=== PATIENT | male | born 1970 | race Native Hawaiian/Other Pacific Islander ===

== ENCOUNTER 2018-12-26 12:49 | Day surgery (SDC) | payer OTHER ==
[2018-12-26] MEDS ORDERED: MARCAINE 0.25% INFILTRATI ONE ×2 (14:22→16:34)
[2018-12-26] MEDS ORDERED: TRIPLE ANTIBIOTIC TP ONE (14:22)
[2018-12-26] MEDS ORDERED: ANTIBIOTIC OINT TP ONE (14:22)
[2018-12-26] MEDS ORDERED: SUBLIMAZE ONE (14:26)
[2018-12-26] MEDS ORDERED: DIPRIVAN 10 MG/ML IV ONE ×2 (14:26→15:42)
--- NOTE | 2018-12-26 15:10 | Short Stay Summary ---
Short Stay Documentation Date of service: 12/26/18 - History H&P: obtained from office - Allergies and Medications Current Medications: Allergies No Known Allergies Allergy (Verified 12/26/18 14:24) Home Medications Medication Instructions Recorded Confirmed Last Taken Type Acyclovir [Zovirax Tab] 800 mg PO PRN PRN 12/19/18 12/19/18 Unknown History Emtricitabine/Tenofovir (Tdf) 1 each PO DAILY 12/19/18 12/19/18 Unknown History [Truvada 100 mg-150 mg Tablet] Multivit-Min/FA/Lycopen/Lutein 1 each PO DAILY 12/19/18 12/19/18 Unknown History [Centrum Silver Tablet] Zolpidem 5 mg PO PRN PRN 12/19/18 12/19/18 Unknown History - Brief post op/procedure progress note Date of procedure: 12/26/18 Pre-op diagnosis: Phimosis / balanitis Post-op diagnosis: same Procedure: circumcision Anesthesia: GETA Findings: mild inflammations Surgeon: JACOBO PINEDA Estimated blood loss: none Pathology: list (foreskin) Specimen disposition: to lab Condition: stable - Hospital course Hospital course: orpacuhome - Disposition Condition at discharge: Good Disposition: DC-01 TO HOME OR SELFCARE Short Stay Discharge Plan Activity: advance as tolerated Diet: advance as tolerated Follow up with: JACOBO PINEDA MD [Staff Physician] - 7 Days Prescriptions: cephALEXin [Keflex] 500 mg PO Q6HR #20 capsule HYDROcodone/APAP 5-325 [[place] 5-325 mg TAB] 1 each PO Q4HR PRN #25 tablet PRN Reason: Pain
[2018-12-26] MEDS ORDERED: ANCEF/STERILE WATER 2 GM/20 ML IV NR (15:12)
[2018-12-26] MEDS ORDERED: VERSED IV ONE (15:13)
[2018-12-26] MEDS ORDERED: LACTATED RINGERS 1,000 ML IV SCH (15:13)
--- NOTE | 2018-12-26 15:13 | Anesthesia Consultation ---
Anesthesia Consult and Med Hx Date of service: 12/26/18 - Airway Anesthetic Teeth Evaluation: Good ROM Head & Neck: Adequate Mental/Hyoid Distance: Adequate Mallampati Class: Class I Intubation Access Assessment: Good - Pulmonary Exam CTA: Yes - Cardiac Exam Cardiac Exam: RRR - Pre-Operative Health Status ASA Pre-Surgery Classification: ASA2 Proposed Anesthetic Plan: General - Pulmonary Hx Smoking: No Hx Sleep Apnea: No (ANSON PRE SCREEN LOW RISK.) - Cardiovascular System Hx Hypertension: Yes (OFF MEDS X 1 MONTH) - Gastrointestinal Hx Gastroesophageal Reflux Disease: Yes (With certain foods) - Other Systems Hx Cancer: No
--- NOTE | 2018-12-26 15:14 | Anesthesia Day of Surgery ---
Anesthesia Day of Surgery - Day of Surgery Patient Examined: Yes Patient H&P Reviewed: Yes Patient is NPO: Yes Beta Blockers: No Cardiac Clearance: No Pulmonary Clearance: No
[2018-12-26] MEDS ORDERED: VERSED ONE (15:35)
[2018-12-26] MEDS ORDERED: NORCO 5/325 PO PRN (18:30)
[2018-12-26 18:41] VITALS: BP 128/84
--- NOTE | 2019-01-16 11:10 | Event Note ---
Date: 01/16/19 Op Note Dicatation [id number]
--- NOTE | 2019-01-16 11:42 | Operative Report ---
PREOPERATIVE DIAGNOSIS: Phimosis balanitis. POSTOPERATIVE DIAGNOSIS: Phimosis balanitis. PROCEDURE: Circumcision. ANESTHESIA: General. FINDINGS: Mild inflammation and tight foreskin. SURGEON: Hayden Browning M.D. ANESTHESIA: General. SPECIMENS: Foreskin. ESTIMATED BLOOD LOSS: None. CONDITION: Stable. CLINICAL INDICATIONS: The patient counseled on RCBA, antibiotics, SCDs including not cosmetically looking like he wants and goal was to just remove the tissue, not circumcision, but remove the noticed tight foreskin. He understands the risks and standard I met risks including chronic pain, loss of sensation, loss of erection and not cosmetically looking like he wants and also looking like there is still redundant foreskin. The patient had antibiotics, SCDs. DESCRIPTION OF PROCEDURE: The patient was transferred to OR suite in supine position, anesthesia, dorsal anesthesia in supine position, prepped and draped in standard fashion. At this point, attention was taken to the penis. We demarcated the standard lines foreskin to ensure that there would be adequate coverage, yet adequately pulled back to not to remove the stenosed skin, as I pulled the foreskin down, could see the tight area and we insured removing this. A proximal circumcision line was made with a skin marker and distal circumferential line just proximal to the coronal sulcus was made and #15 blade was used to incise circumferentially proximally and distally and measure our side. Next, electrocautery and a small scissors was used to make an incision at the 12 o'clock position from the proximal and distal line. Electrocautery was then used to dissect out the free sleeve, entire free sleeve was removed, irrigated the area, cauterized any areas of bleeding. Next, we approximated the skin at the 12 o'clock, 3 o'clock and 9 o'clock position and interrupted 3-0 chromic was placed, a U stitch of 3-0 chromic was placed at the 6 o'clock position at the frenulum. Next, in between the 3 and 6 o'clock, 6 and 9 o'clock, 9 and 12 o'clock and 1 and 3 o'clock proceed. Interrupted sutures were placed in between each of those areas, interrupted 3-0 chromic. Then, in between those sutures interrupted 4-0 Vicryl. This was done circumferentially between all quadrants with some additional 4-0 chromic placed to approximate the frenulum and 6 o'clock position. At the end of the procedure, area was irrigated. There was no significant bleeding and looked in good position. Neosporin applied. Vaseline gauze applied, Gail. This was placed with pressure, but not excessive pressure, was placed adequately loose and noncircumferentially. The patient at this point was awakened and transferred to PACU in good and stable condition. JOB# [id number] ATS/NTS
== END 2018-12-26 19:05 | disposition home or self-care (01) ==
LOC: OR 12:49
PROVIDERS: ATTEND Urology
DX: N48.1 Balanitis (principal); N47.1 Phimosis; I10 Essential (primary) hypertension; K21.9 Gastro-esophageal reflux disease without esophagitis; Z79.899 Other long term (current) drug therapy; Z87.891 Personal history of nicotine dependence; Z86.2 Personal history of diseases of the blood and blood-forming organs and certain disorders involving the immune mechanism
CPT/HCPCS: 54161; 88304; J0690; J2250; J2704; J3010; J7120; A6250